=== PATIENT | male | born 1940 | race Caucasian/White ===

== ENCOUNTER 2024-05-09 06:15 | Day surgery (SDC) | payer MEDICARE, OTHER ==
[~2024-05-09] VITALS: Ht 193 cm; Wt 104.3 kg
[~2024-05-09 06:15] MED LIST: APIX5TAB PO; FLUT1AER3 IN; FLUT1AER5 IN; LOSA-533 PO; METO25TA36 PO
[2024-05-09] MEDS ORDERED: DOXAPRAM HCL 20 MG/ML 20ML VIAL INJ IV ONE (07:06)
[2024-05-09] MEDS ORDERED: ROCURONIUM 10MG/ML 10ML VIAL IV ONE (07:07)
[2024-05-09] MEDS ORDERED: SUCCINYLCHOLINE CHLORIDE 20 MG/ML 10ML VIAL IV ONE (07:07)
[2024-05-09] MEDS ORDERED: ceFAZolin 2 GM/D5W100ml 100 ML IV ONE (07:15)
[2024-05-09] MEDS ORDERED: SODIUM CHLORIDE LOCK 10 ML ONE (07:21)
[2024-05-09] MEDS ORDERED: MEPERIDINE HCL (25 MG/ML) 1ML VIAL ONE (07:21)
[2024-05-09] MEDS ORDERED: LIDOCAINE 1% INJ PF 5ML AMP ONE (07:21)
[2024-05-09] MEDS ORDERED: fentaNYL CITRATE 100 MCG/2 ML VL ONE (07:21)
[2024-05-09] MEDS ORDERED: DexAMETHasone SOD PHOS 10MG/1ML VIAL INJ ONE (07:21)
[2024-05-09] MEDS ORDERED: KETAMINE 50mg/ML 1ml syringe ONE (07:21)
[2024-05-09] MEDS ORDERED: LIDOCAINE HCL 2% TOP JELLY 5ML TOP ONE (07:21)
[2024-05-09] MEDS ORDERED: PROPOFOL 10 MG/ML 20 ML IV ONE (07:21)
[2024-05-09] MEDS ORDERED: ONDANSETRON HCL 4 MG/2 ML VIAL ONE (07:21)
[2024-05-09] MEDS ORDERED: MIDAZOLAM HCL 2MG/2ML 2ml VIAL (1mg/ml) ONE (07:21)
[2024-05-09] MEDS ORDERED: HYDROmorphone HCL 2 MG/ML VL/or syr IV PRN ×2 (07:45)
[2024-05-09] MEDS ORDERED: METOCLOPRAMIDE HCL 5MG/ml INJ 2ml VIAL IV ONE (07:45)
[2024-05-09] MEDS ORDERED: fentaNYL CITRATE 100 MCG/2 ML VL IV PRN (07:45)
[2024-05-09] MEDS ORDERED: MORPHINE SULFATE INJ 2 MG/ml SYRG IV PRN (07:45)
[2024-05-09] MEDS: BUPIVACAINE 0.5% P/F INJ 10 ML VIAL ONE (08:30)
[2024-05-09] MEDS: LIDOCAINE W/ EPINEPHRINE 2% INJ 20ML VIAL ONE (08:31)
[2024-05-09] MEDS: VANCOMYCIN HCL 1000 MG VL ONE (08:32)
[2024-05-09] MEDS: MORPHINE SULF PF 5 MG/10 ML VIAL ONE (08:32)
[2024-05-09 09:01] VITALS: PULSE 77; RESP 18; TEMP 97.5; O2SAT 100
[2024-05-09 09:05] VITALS: PULSE 74; RESP 13; O2SAT 94
[2024-05-09 09:11] VITALS: O2SAT 9
[2024-05-09 09:31] VITALS: BP 151/97; PULSE 72; RESP 14
--- NOTE | 2024-05-09 09:46 | DVH ---
C-ARM FLUOROSCOPY: PROCEDURE: Sacroiliac joint procedure FLUOROSCOPY TIME: 139.8 seconds DAP: 84.74 mgy FINDINGS: Spot intraoperative C arm radiographs demonstrating sacroiliac joint procedure. IMPRESSION: Please refer to surgical report for detailed findings.
== END 2024-05-09 09:56 | disposition home or self-care (01) ==
LOC: SUR 06:15
PROVIDERS: ATTEND Anesthesiology Pain Medicine
DX: M46.1 Sacroiliitis, not elsewhere classified (principal); M53.3 Sacrococcygeal disorders, not elsewhere classified; M53.2X8 Spinal instabilities, sacral and sacrococcygeal region; M53.88 Other specified dorsopathies, sacral and sacrococcygeal region; M47.818 Spondylosis without myelopathy or radiculopathy, sacral and sacrococcygeal region; J44.9 Chronic obstructive pulmonary disease, unspecified; I48.91 Unspecified atrial fibrillation; I10 Essential (primary) hypertension; M79.18 Myalgia, other site; Z88.8 Allergy status to other drugs, medicaments and biological substances; I25.10 Atherosclerotic heart disease of native coronary artery without angina pectoris; G20.C Parkinsonism, unspecified; Z86.73 Personal history of transient ischemic attack (TIA), and cerebral infarction without residual deficits; Z98.41 Cataract extraction status, right eye; Z98.42 Cataract extraction status, left eye
CPT/HCPCS: 27279; 72220; 76000; C1889; J0330; J1100; J2175; J2250; J2270; J2405; J2704; J3010; J3370; J3490